=== PATIENT | male | born 1980 | race Caucasian/White ===

== ENCOUNTER 2023-04-18 14:32 | Observation (INO) | payer OTHER, SELFPAY ==
[2023-04-18] VITALS (7 sets, daily range): BP systolic 143–160; BP diastolic 100–122; PULSE 66–81; RESP 11–16; TEMP 36.4–36.8; O2SAT 97–100; BMI 24.5
--- NOTE | ~2023-04-18 | CT_ITS ---
EXAMINATION: CTA BRAIN/CAROTID DATE: 04/18/2023 15:31 INDICATION: Stroke with dizziness and difficulty finding words TECHNIQUE: Computed tomographic angiography (CTA) of the head and neck was performed with 100 mL Omni paque-350 intravenous contrast. Multiplanar reconstructions and maximum intensity projection 3D-recon structions of the carotid arteries and of the intracranial arteries were created by the technologist on a separate workstation. Automated exposure control and iterative reconstruction technique were emp loyed.The dose-length product was 1075.89 mGy-cm. COMPARISON: None. FINDINGS: Carotid arteries: Visualized portion of the aortic arch is normal in caliber with no atherosclerotic plaque or dissecti on. There is no evident plaque with 0% stenosis of the right and left carotid bulbs relative to hermelinda l distal artery lumen diameter (NASCET criteria). Bilateral vertebral arteries are codominant with no evident stenosis. Cervical soft tissues are unremarkable. Mild dependent atelectasis in the visualiz ed upper lungs likely related to expiratory phase of imaging. Intracranial arteries There is no hemodynamically significant stenosis in the vertebral, basilar and internal carotid arter ies. Vertebral arteries are codominant. There are no aneurysms identified. Both A1 and P1 segments a re patent. Cerebral arterial arborization appears symmetric. Mild mucosal thickening and mucous rete ntion cyst in the right maxillary sinus. IMPRESSION: 1. 0% stenosis of the right and left carotid bulbs relative to normal distal artery lumen diameter (N ASCET criteria). 2. Normal CT cerebral angiogram. Reviewed, dictated and finalized at location A. S DESIGNER IMPRESSION: 1. 0% stenosis of the right and left carotid bulbs relative to normal distal ar deric lumen diameter (NASCET criteria). 2. Normal CT cerebral angiogram.
--- NOTE | ~2023-04-18 | CT_ITS ---
EXAMINATION: CT brain wo con DATE: 04/18/2023 15:29 INDICATION: Difficulty with speech and finding words. Dizziness. Upper limb weakness. TECHNIQUE: Computed tomography (CT) of the head was performed without intravenous contrast. Sagittal and coronal reconstructions were performed. The mA was adjusted according to patient size. Iterative reconstruction technique was employed. The dose-length product was 605.33 mGy-cm. COMPARISON: None FINDINGS: No acute intracranial hemorrhage, acute infarction or abnormal extra axial fluid collection. Ventricl es are normal and symmetric. No mass/mass effect. The orbits, paranasal sinuses and mastoid air cells are normal. IMPRESSION: 1. Normal head CT. Reviewed, dictated and finalized at location A. B AND B GANG WORKER IMPRESSION: 1. Normal head CT.
--- NOTE | ~2023-04-18 | MR_ITS ---
EXAMINATION: MR brain/brain stem wo/w con DATE: 04/19/2023 07:57 INDICATION: Transient ischemic episode with dizziness TECHNIQUE: Magnetic resonance imaging (MRI) of the brain and brainstem was performed without and with 16 mL Multihance intravenous contrast. Sequences included sagittal and axial T1-weighted SE, axial d iffusion-weighted FS SE, axial T2*-weighted GRE, axial T2-weighted FLAIR, and axial T2-weighted FSE. Postcontrast axial and coronal T1-weighted SE was obtained. Apparent diffusion coefficient (ADC) maps were created. COMPARISON: None. FINDINGS: There are no areas of restricted diffusion to suggest acute infarction. No intracranial hemorrhage or abnormal intracranial mass lesion. There are scattered areas of nonspecific increased T2-weighted si gnal intensity in the cerebral white matter, predominantly involving the deep and periventricular whi te matter. There are no intraparenchymal signal abnormalities seen on the other pulse sequences. The ventricles are symmetric and normal in size. There are no abnormal extra-axial fluid collections. Mikhail w voids are seen in the cerebral arteries on the T2-weighted sequences consistent with their expected patency. Mucosal thickening in the paranasal sinuses with mucous retention cyst at the floor of the right maxillary sinus. Visualized orbits and soft tissues are unremarkable. There are no areas of abn ormal enhancement on the post contrast images. IMPRESSION: 1. Normal brain. Reviewed, dictated and finalized at location A. R PIGMENT IMPRESSION: 1. Normal brain.
--- NOTE | 2023-04-18 14:34 | ECG_ITS ---
Measurements Intervals [place] Rate: 82 P: 35 CO: 181 QRS: 36 QRSD: 116 T: 3 QT: 381 QTc: 447 Interpretive Statements SINUS RHYTHM INCOMPLETE RIGHT BUNDLE BRANCH BLOCK BASELINE ARTIFACT- I, II, III, AVR, AVL, AVF, V1-V6 BORDERLINE ECG NO PREVIOUS ECG AVAILABLE FOR COMPARISON Electronically Signed On 04-18-2023 15:32:32 SENIOR PAYROLL ADMINISTRATOR by Rafael Shaw D.O.
--- NOTE | 2023-04-18 14:56 | ED.DIZZY ---
HPI - Dizziness General Chief Complaint: Dizziness Stated Complaint: dizziness Time Seen by Provider: 04/18/23 14:54 Source: patient, family () and EMS History of Present Illness HPI Narrative: This is a 42 yo male who presents via EMS. At approximately 1:30pm, while driving, he suddenly felt dizzy/lightheaded. He felt hot/flushed and his arms (L > R) felt heavy. He also had difficulty catching his breath. He has been having word-finding difficulty and issues with memory after this episode. Prior to this, earlier this morning, he was asymptomatic. No position change preceding episode. Denies chest pain, abdominal pain. He has been told he has HTN before but is not prescribed medications. Denies alcohol/drugs today. Related Data Home Medications Medication Instructions Recorded Confirmed aluminum chloride 20 % topical 1 applic topical HS PRN Sweating 04/18/23 04/18/23 solution (Drysol Dab-O-Matic) escitalopram oxalate 10 mg tablet 10 mg PO QAM 04/18/23 04/18/23 fluticasone 250 mcg-salmeterol 50 1 inh inhalation BID PRN Shortness 04/18/23 04/18/23 mcg/dose blistr powdr for Of Breath inhalation (Advair Diskus) glycopyrrolate 2 mg tablet 2 mg PO Q8H PRN Diarrhea 04/18/23 04/18/23 Allergies Allergy/AdvReac Type Severity Reaction Status Date / Time No Known Allergies Allergy Verified 04/18/23 14:43 PMFSH Past Medical History Medical History (Updated 04/20/23 @ 01:05 by Uma Hobbs MD) Depression Hypertension IBS (irritable bowel syndrome) Family History Family History (Updated 04/18/23 @ 20:59 by Joana Villarreal RN) Father Acute myocardial infarction Social History Social History Smoking status: Never smoker Alcohol intake: current Drinks per week: 4 Substance use: never Lack of Transportation: No Lack of Food: Never True Current Housing: I Have Housing Concerned About Future Housing: No Difficulty Paying Gas/Electric Bills: No Difficulty Paying for Meds: No Currently Unemployed: No Education: Don't Know Difficulty w/ Childcare or Family Care: No Spiritual care concerns: No Exam Const: General: healthy appearing, no acute distress and alert; No diaphoretic or ill appearing Nutritional Appearance: well nourished Orientation/consciousness: patient oriented x3 HENMT: Head: normal to inspection Other: gross auditory acuity intact Eyes: Conjunctivae: conjunctivae normal Pupils: Equal, round and reactive pupils present EOM: EOMs intact bilaterally Direct Ophthalmoscopy: no photophobia Other: no visual field deficits Neck: Neck: normal visual inspection Resp: Effort & Inspection: normal respiratory effort, not labored, no retractions, not tachypneic and no use of accessory muscles Other: no abnormal breathing pattern Cardio: Rate: regular rate Rhythm: regular rhythm GI: Inspection: non-distended GI Palp: Yes Soft to palpation Skin: General skin exam: normal color, no jaundice and no pallor Neuro: General: moves all extremities Other: Word finding difficulty; slight expressive aphasia as can't express words he wants to, but does not replace them with alternative words. Unable to perform serial 7s ( 100, 9:30, 84, 74 ). Also unable to spell WORLD backwards. Sensation intact to gross touch in all extremities. Normal tone and bulk. No abnormal movements appreciated. Finger to nose and heel to [place] testing intact bilaterally. No extinction. Keenly alert. Answers month/age. Follows commands. No gaze palsy. No facial palsy. No motor drift x4 extremities. No limb ataxia. Speech is very slightly slurred but intelligible. Extrem: General: normal to inspection Psych: Mental Status: mental status grossly normal Affect: normal affect and No Sad affect present Attitude: cooperative Course Consultations Consultation #1: Discussed with neurologist Dr Alvarez who recommends patient undergo an MRI brain tomorrow morning, aspirin 8
[2023-04-18 15:06] LABS: Basophils Percent Auto 0.5 % (0.2-1.2); Eosinophils Absolute Auto 0.1 K/mm3 (0-0.3); Hematocrit 45.1 % (42.0-52.0); Hemoglobin 15.8 g/dL (14.0-18.0); Immature Granulocyte Absolute 0.01 K/mm3 (0.00-0.031); Immature Granulocyte Percent A 0.2 % (0-0.5); Lymphocytes Absolute Auto 1.62 K/mm3 (0.9-3.2); Lymphocytes Percent Auto 29.6 % (18.3-44.2); Mean Corpuscular Hemoglobin 30.3 pg (26-34); Mean Corpuscular Volume 86.6 fl (80-100); Mean Platelet Volume 9.6 fl (7.4-10.4); Monocytes Absolute Auto 0.5 K/mm3 (0.1-0.6); Monocytes Percent Auto 8.8 % (2.6-8.5); Neutrophils Absolute Auto 3.2 K/mm3 (1.3-6.7); Neutrophils Percent Auto 58.9 % (45.5-73.1); Platelet Count Result 241 k/mm3 (150-375); Red Blood Count 5.21 M/mm3 (4.6-6.20); Red Cell Distribution Width 12.5 % (11.5-14.5); White Blood Count 5.5 K/mm3 (4.5-10.0)
[2023-04-18 15:15] LABS: Alanine Aminotransferase 36 U/L (6-50); Albumin Level 4.5 g/dL (3.5-5.1); Alkaline Phosphatase 70 U/L (38-126); Anion Gap 5 mmol/L (8-16); Aspartate Amino Transferase 32 U/L (17-59); Bilirubin,Total 0.8 mg/dL (0.2-1.3); Blood Urea Nitrogen 13 mg/dL (9-20); Calcium 9.1 mg/dL (8.4-10.2); Carbon Dioxide 30 mmol/L (22-30); Chloride 99 mmol/L (98-107); Estimated CRCL calculation 91 ml/min; Estimated Glomerular Filt Rate > 60; Glucose 137 mg/dL (65-110); Potassium 3.6 mmol/L (3.4-5.0); Sodium 134 mmol/L (137-145)
[2023-04-18 15:17] LABS: INR 0.9; Partial Thromboplastin Time 24.5 SECONDS (22.3-36.8); Prothrombin Time 12.6 Seconds (11.1-14.7)
[2023-04-18 15:55] LABS: Troponin I 0.026 ng/mL (0.000-0.034)
[2023-04-18 16:13] LABS: Appearance Urine Clear (Clear); Bilirubin Urine Negative (Negative); Blood Urine Negative (Negative); Color Urine Yellow (Yellow); Glucose Urine UA Negative (Negative); Ketones Urine Negative (Negative); Leukocyte Esterase Ur Negative LEU/UL (Negative); Nitrate Urine Negative (Negative); Protein Urine Negative (Negative); Specific Grav Ur 1.009 (1.001-1.035); Urobilinogen Urine 0.2 mg/dL (<2.0)
[2023-04-18 16:17] LABS: Add Urine Microscopic? NO
[2023-04-18] MEDS: ACETAMINOPHEN 500 MG TABLET 1000 MG PO (18:36)
[2023-04-18 18:52] LABS: Barbiturate Screen Urine Negative (Negative); Benzodiazepines Screen Urine Negative (Negative)
[2023-04-18 18:53] LABS: Cannabinoid Screen Urine Negative (Negative); Cocaine Screen Urine Negative (Negative); Methadone Screen Urine Negative (Negative); Opiate Screen Urine Negative (Negative); Phencyclidine Screen Urine Negative (Negative)
[2023-04-18 18:56] LABS: Amphetamine Screen Urine Negative (Negative)
--- NOTE | 2023-04-18 20:07 | PM.IMHP ---
H&P: HPI History of Present Illness Date/Time: 04/18/23 20:07 Chief Complaint: Dizziness Narrative: This is a 42-year-old male with past medical history significant for asthma, depression. Patient presents to the emergency room after having episode of dizziness while driving patient pull up to the side of the road and call 911 was brought for further evaluation. Patient denies any loss of consciousness, vision changes, no focal weakness, has been in his usual state of health up to this point, no fevers, no rigors, no chills no nausea no vomiting no diarrhea no abdominal pain no cough no sputum production. Preliminary workup has been essentially non revealing. Patient has been placed in observation for further evaluation management and treatment. EXAMINATION: CT brain wo con DATE: 04/18/2023 15:29 INDICATION: Difficulty with speech and finding words. Dizziness. Upper limb weakness. TECHNIQUE: Computed tomography (CT) of the head was performed without intravenous contrast. Sagittal and coronal reconstructions were performed. The mA was adjusted according to patient size. Iterative reconstruction technique was employed. The dose-length product was 605.33 mGy-cm. COMPARISON: None FINDINGS: No acute intracranial hemorrhage, acute infarction or abnormal extra axial fluid collection. Ventricles are normal and symmetric. No mass/mass effect. The orbits, paranasal sinuses and mastoid air cells are normal. IMPRESSION: 1. Normal head CT. EXAMINATION: CTA BRAIN/CAROTID DATE: 04/18/2023 15:31 INDICATION: Stroke with dizziness and difficulty finding words TECHNIQUE: Computed tomographic angiography (CTA) of the head and neck was performed with 100 mL Omnipaque-350 intravenous contrast. Multiplanar reconstructions and maximum intensity projection 3D-reconstructions of the carotid arteries and of the intracranial arteries were created by the technologist on a separate workstation. Automated exposure control and iterative reconstruction technique were employed.The dose-length product was 1075.89 mGy-cm. COMPARISON: None. ? FINDINGS: Carotid arteries: Visualized portion of the aortic arch is normal in caliber with no atherosclerotic plaque or dissection. There is no evident plaque with 0% stenosis of the right and left carotid bulbs relative to normal distal artery lumen diameter (NASCET criteria). Bilateral vertebral arteries are codominant with no evident stenosis. Cervical soft tissues are unremarkable. Mild dependent atelectasis in the visualized upper lungs likely related to expiratory phase of imaging. Intracranial arteries There is no hemodynamically significant stenosis in the vertebral, basilar and internal carotid arteries. Vertebral arteries are codominant. There are no aneurysms identified.? Both A1 and P1 segments are patent.? Cerebral arterial arborization appears symmetric. Mild mucosal thickening and mucous retention cyst in the right maxillary sinus. IMPRESSION: 1. 0% stenosis of the right and left carotid bulbs relative to normal distal artery lumen diameter (NASCET criteria). 2. Normal CT cerebral angiogram. Review of Systems Review of Systems: dizziness Constitutional: Constitutional: Denies chills, Denies fever(s), Denies headache(s) and Denies night sweats Eyes: Eyes: Denies change in vision ENT: Denies dysphagia, Reports dizziness, Denies nasal congestion, Denies nasal discharge, Denies nasal obstruction, Denies odynophagia and Denies disequilibrium Cardiovascular: Cardiovascular: Denies chest pain, Denies irregular heart rhythm, Reports lightheadedness, Denies radiating jaw, neck or arm pain and Denies palpitations Respiratory: Respiratory: Denies cough and Denies dyspnea on exertion Gastrointestinal: Gastrointestinal: Denies abdominal pain, Denies dyspepsia, Denies heartburn, Denies diarrhea, Denies nausea, Denies vomiting and Denies hematemesis Genitourinary: Genitourinary: Denies dysuria Musc
[2023-04-18] MEDS: ASPIRIN 325 MG TABLET PO (20:09)
--- NOTE | 2023-04-18 20:57 | ADMGEN ---
This patient, Jenaro Patel, was admitted to Medical Room 345-01. Patient/family oriented to hospital policies and general routines including ID bracelet, bed and alarms, visiting hours, pain management, procedures, bathroom and other care routines, personal items, smoking policy, room service/diet, and visiting hours. Information on how to activate the Rapid Response Team has been discussed. Patient/Family are encouraged to report perceived risks to care and to ask questions if they do not understand what they are told or what they should do.
--- NOTE | 2023-04-19 | ECHO_ITS ---
Patient Info Name: Jenaro Carballo Winter Age: 42 years : 1980 Gender: Male Ht: 72 in Wt: 180 lbs BSA: 2.04 m2 HR: 69 bpm BP: 135 / 91 mmHg Heart Rhythm: Sinus Rhythm Technical Quality: Excellent Exam Date: 04/19/2023 9:56 AM Exam Location: Echo Lab Patient Status: Inpatient Admit Date: 04/18/2023 Staff Ordering Physician: Viky Lord MD Electrical Machinist: Desiree Marion RDCS Attending Provider: Sharon Martinez DO Referring Physician: Pop ADAMS; Exam Type: CA echo doppler color flow Study Info Indications - dizziness Complete two-dimensional, color flow and Doppler transthoracic echocardiogram is performed. Summary 1. Complete two-dimensional, color flow and Doppler transthoracic echocardiogram is performed. 2. Left ventricular chamber dimension is normal. 3. Left ventricular systolic function is normal, estimated at 65-70%. 4. There is no increased left ventricular wall thickness. 5. The left ventricular diastolic function is normal. 6. There is trace aortic valve regurgitation. 7. There is no mitral valve regurgitation. 8. There is trace tricuspid valve regurgitation. 9. No pulmonary hypertension, estimated pulmonary arterial systolic pressure is 22 mmHg. 10. Recommend repeat limited 2D echo with bubble study with and without Valsalva to assess for interatrial shunt if clinically indicated. Recommendations * Recommend repeat limited 2D echo with bubble study with and without Valsalva to assess for interatrial shunt if clinically indicated. Left Ventricle Left ventricular chamber dimension is normal. Left ventricular systolic function is normal, estimated at 65-70%. There is no increased left ventricular wall thickness. The left ventricular diastolic function is normal. Right Ventricle Right ventricular chamber dimension is normal. Right ventricular systolic function is normal. TAPSE 3.0. Left Atria Left atrial chamber dimension is normal. Right Atria Right atrial chamber dimension is normal. Aortic Valve The aortic valve is trileaflet. There is no aortic valve stenosis. There is trace aortic valve regurgitation. Pulmonic Valve The pulmonic valve is normal. There is mild pulmonic regurgitation. Mitral Valve The mitral valve has normal leaflets. There is no mitral valve regurgitation. Tricuspid Valve The tricuspid valve leaflets are normal. There is trace tricuspid valve regurgitation. No pulmonary hypertension, estimated pulmonary arterial systolic pressure is 22 mmHg. Pericardium/Pleural The pericardium appears normal. There is no pericardial effusion. Inferior Vena Cava Normal inferior vena cava with >50% collapse upon inspiration consistent with normal right atrial pressure, 5 mmHg. Aorta The aortic root size at the sinus of Valsalva is normal. Left Ventricular Outflow Tract Name Value Normal LVOT 2D LVOT Diameter 2.0 cm LVOT Doppler LVOT Peak Gradient 2 mmHg LVOT Mean Gradient 1 mmHg LVOT VTI 18 cm LVOT VTI/AV VTI Ratio 0.6 LVOT Stroke Volume 59 ml LVOT CO 3.1 l/
[2023-04-19 00:42] VITALS: PULSE 73
[2023-04-19 04:00] VITALS: PULSE 64
[2023-04-19 06:00] VITALS: BP 135/91; PULSE 69; RESP 14; TEMP 36.6; O2SAT 94
[2023-04-19] MEDS: ASPIRIN 81 MG ENTERIC TABLET PO (08:11)
[2023-04-19] MEDS: ESCITALOPRAM OXALATE 10 MG TABLET PO (08:11)
[2023-04-19] MEDS: CLOPIDOGREL BISULFATE 75 MG TABLET PO (08:12)
[2023-04-19 09:53] LABS: Cholesterol 220 mg/dL (0-200); HDL Direct 45 mg/dL; Triglycerides 178 mg/dL (<150)
[2023-04-19 10:04] LABS: LDL Cholesterol Direct 117 mg/dL
[2023-04-19 10:09] LABS: Hemoglobin A1C 5.1 % (<5.7)
[2023-04-19 10:25] LABS: Thyroid Stimulating Hormone Reflex 0.467 uIU/mL (0.465-4.68)
[2023-04-19 12:00] VITALS: PULSE 69
--- NOTE | 2023-04-19 13:40 | PM.IMPN ---
Progress Note: A&P Assessment and Plan (1) Dizziness: Code(s): R42 - Dizziness and giddiness Status: Acute Assessment and Plan: CT angiogram of the brain negative CT head negative MRI of the brain negative Echocardiogram - recommended repeat limited 2D echo with bubble study with and without Valsalva to assess for interatrial shunt if clinically indicated neuro consulted - awaiting eval Subjective Date/time seen: 04/19/23 13:40 Interval history: Patient is a 42 YO male with past medical history significant for asthma, depression. Patient presents to the emergency room after having episode of dizziness while driving patient pull up to the side of the road and call 911 was brought for further evaluation. Patient denies any loss of consciousness, vision changes, no focal weakness, has been in his usual state of health up to this point, no fevers, no rigors, no chills no nausea no vomiting no diarrhea no abdominal pain no cough no sputum production. Preliminary workup has been essentially non revealing. CT brain was negative. MRI brain was negative. ECHO shows no acute changes, but recommended repeat limited 2D echo with bubble study with and without Valsalva to assess for interatrial shunt if clinically indicated. Patient is alert and oriented this morning, denies any repeat of his symptoms. He does not regularly see his PCP. TSH, A1c and lipids ordered to rule out possible etiology related to blood sugar control, TSH. He is usually active, but admits to a stressful job which he knows does not help. He is on an antidepressant but has not changed the dose or frequency, denies panic attacks or seizures in the past. negative family history. Neuro consulted, will await recommendations. Review of Systems Review of Systems: dizziness Exam Narrative: lying in bed Const: General: comfortable, no acute distress, well developed, alert, awake and average body habitus Nutritional Appearance: average body habitus Orientation/consciousness: patient oriented x3 HENMT: Head: normal to inspection, normocephalic and atraumatic Ears: hearing grossly normal bilaterally Face/Nose/Sinus: normal facial exam Face and sinus: normal facial exam Eyes: General: appearance normal, both eyes and all related structures Pupils: Equal, round and reactive pupils present EOM: EOMs intact bilaterally Neck: Neck: full ROM, no lymphadenopathy and no JVD Thyroid: thyroid normal Lymphatic: no lymphadenopathy noted Resp: Effort & Inspection: normal respiratory effort and able to speak in complete sentences Auscultation: clear to auscultation bilaterally Cardio: Jugular venous distension: no JVD Rate: regular rate Rhythm: regular rhythm Heart sounds: S1 normal heart sound present and S2 normal heart sound present : General: Yes deferred Skin: Rashes: no rashes Wounds: no wounds Neuro: General: patient oriented x3 and CN's II-XI intact bilaterally Cranial nerves: Yes CN's II-XII intact bilaterally and Yes Equal, round and reactive pupils present Cognition (Neuro): normal cognition Speech: normal speech and No Abnormal speech present Gait exam (Neuro): Normal gait present Motor exam (neuro): 5/5 motor strength present throughout Sensory Exam: No Sensory deficit (Neuro) Extrem: General: normal to inspection, full ROM, no joint enlargement and no pedal edema Objective Data Vital Signs Vital Signs: Vital Signs - 24 hr 04/18/23 14:31 04/18/23 14:46 04/18/23 16:46 Temperature 97.6 F Pulse Rate 79 81 73 Respiratory Rate 14 15 12 Blood Pressure 160/106 H 153/122 H 143/103 H Pulse Oximetry 100 100 100 Oxygen Delivery Room Air 04/18/23 17:46 04/18/23 18:01 04/18/23 18:16 Temperature Pulse Rate 66 71 70 Respiratory Rate 16 12 11 L Blood Pressure 143/117 H 157/121 H 157/109 H Pulse Oximetry 98 100 100 Oxygen Delivery 04/18/23 21:21 04/19/23 00:42 04/19/23 04:00 Temperature 98.2 F Pulse Rate 73 73
[2023-04-19 14:00] VITALS: BP 140/90; PULSE 63; RESP 18; TEMP 36.1; O2SAT 98
--- NOTE | 2023-04-19 15:20 | WPDNEURCNPN ---
Assessment and Plan Assessment and plan (1) Dizziness: Code(s): R42 - Dizziness and giddiness Status: Acute Plan history of dizziness with negative CTA negative MRI of the brain and also echocardiogram routine EEG will be necessary and further discussion with the med according Consult date: 04/19/23 HPI: Jenaro Patel is a 42 year old male admitted to the hospital through the emergency room for the planes of dizziness with no known allergy, initial vital signs normal except blood pressure 160/106, CBC in a BMP with sodium 134 glucose 137, EKG without atrial fibrillation and in addition ongoing history of 1. Bronchial asthma 2. Depression. Patient had an episode of dizziness while driving he he pulled up on the side of the road call 911 and was brought to the hospital for further evaluation and has no specific history of any other problem, echocardiogram has revealed no significant abnormalities but repeat bubble study has been suggested, initial head neck CTA was normal, brain MRI is normal, CN lab studies negative particularly drug screen Review of Systems Review of Systems: All systems reviewed & are unremarkable except as noted in HPI and below PMFSH Family History Family History (Updated 04/18/23 @ 20:59 by Joana Villarreal RN) Father Acute myocardial infarction Social History Social History Smoking status: Never smoker Alcohol intake: current Drinks per week: 4 Substance use: never Lack of Transportation: No Lack of Food: Never True Current Housing: I Have Housing Concerned About Future Housing: No Difficulty Paying Gas/Electric Bills: No Difficulty Paying for Meds: No Currently Unemployed: No Education: Don't Know Difficulty w/ Childcare or Family Care: No Spiritual care concerns: No Meds Home Medications and Allergies Home Medications Medication Instructions Recorded Confirmed Type aluminum chloride 20 % topical 1 applic topical HS PRN Sweating 04/18/23 04/18/23 History solution (Drysol Dab-O-Matic) escitalopram oxalate 10 mg tablet 10 mg PO QAM 04/18/23 04/18/23 History fluticasone 250 mcg-salmeterol 50 1 inh inhalation BID PRN Shortness 04/18/23 04/18/23 History mcg/dose blistr powdr for Of Breath inhalation (Advair Diskus) glycopyrrolate 2 mg tablet 2 mg PO Q8H PRN Diarrhea 04/18/23 04/18/23 History Allergies Allergy/AdvReac Type Severity Reaction Status Date / Time No Known Allergies Allergy Verified 04/18/23 14:43 Vital Signs Vital Signs - 24 hr 04/18/23 16:46 04/18/23 17:46 04/18/23 18:01 Temperature Pulse Rate 73 66 71 Respiratory Rate 12 16 12 Blood Pressure 143/103 H 143/117 H 157/121 H Pulse Oximetry 100 98 100 04/18/23 18:16 04/18/23 21:21 04/19/23 00:42 Temperature 36.8 C Pulse Rate 70 73 73 Respiratory Rate 11 L 16 Blood Pressure 157/109 H 147/100 H Pulse Oximetry 100 97 04/19/23 04:00 04/19/23 06:00 04/19/23 12:00 Temperature 36.6 C Pulse Rate 64 69 69 Respiratory Rate 14 Blood Pressure 135/91 H Pulse Oximetry 94 Exam Narrative: exam reveals him to be awake alert cooperative in no obvious acute distress, head normocephalic with no cranial bruit, ear nose throat examination normal, neck supple with no bruit, heart regular with no murmur, lungs clear abdomen is soft neurologically awake alert oriented x3, his speech nor dysphasic not dysarthric not dysphonic, the cranial examination is normal, motor examination revealed no known drift of 1 side or other side against gravity no pronator drift and the tone is normal reflexes symmetrical plantars are downgoing there is no evidence of gross cerebellar deficit Results Labs 04/18/23 14:54 04/18/23 14:54 Labs: Cardiac Enzymes 04/18/23 Range/Units 14:54 Troponin I 0.026 (0.000-0.034) ng/mL Urine 04/18/23 Range/Units 16:06 Urine Color Yellow (Yellow) Urine Appearance Clear (Gabbi
--- NOTE | 2023-04-19 15:41 | PC.NURSE ---
Spoke with Dr Christie by phone and he clears patient for DC
--- NOTE | 2023-04-20 06:56 | PM.DS ---
DS: Admitting Diagnosis Discharge Date 04/19/23 Admitting Diagnosis dizziness DS: Discharge Diagnosis Discharge Diagnosis (1) Dizziness: Code(s): R42 - Dizziness and giddiness Status: Acute Assessment and Plan: CT angiogram of the brain was negative CT head was negative MRI of the brain was negative Echocardiogram - recommended repeat limited 2D echo with bubble study with and without Valsalva to assess for interatrial shunt if clinically indicated neuro consulted - recommended routine EEG. Naseer must have cleared patient for discharge from neuro perspective and patient can follow up outpatient if symptoms continue. TSH and A1c were WNL to rule out possible etiology from hyper or hypothyroid, or consistent hypoglycemia. Plan Encouraged patient to follow up with primary care provider and to monitor his blood pressure at home as he was borderline while in patient and this can contribute to risk of stroke if hypertensive and uncontrolled. DS: Summary Hospital Course Hospital Course: Patient is a 42 YO male with past medical history significant for asthma, depression. Patient presented to the emergency room after having episode of dizziness while driving patient pull up to the side of the road and call 911 was brought for further evaluation. Patient denies any loss of consciousness, vision changes, no focal weakness, has been in his usual state of health up to this point, no fevers, no rigors, no chills no nausea no vomiting no diarrhea no abdominal pain no cough no sputum production. Preliminary workup was non revealing. CT brain was negative. MRI brain was negative. ECHO shows no acute changes, but recommended repeat limited 2D echo with bubble study with and without Valsalva to assess for interatrial shunt if clinically indicated. Neurology recommended an EEG, but cleared for discharge. Patient has been stable while in the hospital, discussed his borderline blood pressures and monitoring going forward as this can contribute to risk of stroke if left uncontrolled. He has had a mild headache since yesterday. He does not regularly see his PCP. TSH, A1c and lipids ordered to rule out possible etiology related to blood sugar control or thyroid dysfunction, which was WNL. He is usually active, but admits to a stressful job which he knows does not help. He is on an antidepressant but has not changed the dose or frequency, denies panic attacks or seizures in the past. negative family history. Patient is stable for d/c home with his . Status at Discharge Functional status at discharge: independent ambulation Overall status at discharge: patient is back to baseline Time Spent with Patient Time attestation: Total time spent providing and/or coordinating discharge services: Exam Const: General: comfortable, no acute distress, well developed, alert, awake and average body habitus Nutritional Appearance: average body habitus Orientation/consciousness: patient oriented x3 HENMT: Head: normal to inspection, normocephalic and atraumatic Ears: hearing grossly normal bilaterally Face/Nose/Sinus: normal facial exam Face and sinus: normal facial exam Eyes: General: appearance normal, both eyes and all related structures Pupils: Equal, round and reactive pupils present EOM: EOMs intact bilaterally Neck: Neck: full ROM, no lymphadenopathy and no JVD Thyroid: thyroid normal Lymphatic: no lymphadenopathy noted Cardio: Jugular venous distension: no JVD Rate: regular rate Rhythm: regular rhythm Heart sounds: S1 normal heart sound present and S2 normal heart sound present Skin: Rashes: no rashes Wounds: no wounds Neuro: General: patient oriented x3 and CN's II-XI intact bilaterally Cranial nerves: Yes CN's II-XII intact bilaterally and Yes Equal, round and reactive pupils present Cognition (Neuro): normal cognition Speech: normal speech and No Abnormal speech present Gait exam (Neuro): Normal gait present Motor exam (neuro): 10/14
== END 2023-04-19 16:45 | disposition home or self-care (01) ==
LOC: ANHED 15:58 → ANH3MED 20:05
PROVIDERS: Emergency Medicine; Nurse Practitioner; Admitting Provider Student in an Organized Health Care Education/Training Program; Emergency Provider Student in an Organized Health Care Education/Training Program; Visit Provider Student in an Organized Health Care Education/Training Program
DX: R42 Dizziness and giddiness (principal); R23.2 Flushing; R47.01 Aphasia; R29.898 Other symptoms and signs involving the musculoskeletal system; R41.3 Other amnesia; F32.A Depression, unspecified; I10 Essential (primary) hypertension; J45.909 Unspecified asthma, uncomplicated; I45.10 Unspecified right bundle-branch block; K58.9 Irritable bowel syndrome, unspecified; R61 Generalized hyperhidrosis; R19.7 Diarrhea, unspecified; F10.90 Alcohol use, unspecified, uncomplicated; Z79.899 Other long term (current) drug therapy
CPT/HCPCS: 36415; 70450; 70496; 70498; 70553; 80053; 80061; 80307; 81003; 83036; 84443; 84484; 85025; 85610; 85730; 93005; 93306; 99285; A9270; A9577; G0378; Q9967